=== PATIENT | male | born 2000 ===

== ENCOUNTER 2022-01-12 16:12 | Emergency (ER) | payer SELFPAY ==
[2022-01-12] MEDS ORDERED: Lidocaine 1% PF 5 ML VIAL ONE ×2 (17:20→18:32)
[2022-01-12] MEDS ORDERED: Amoxicillin/Potassium Clav 500 MG TAB ONE (19:24)
[2022-01-12] MEDS ORDERED: Ibuprofen 600 MG TAB ONE (19:24)
== END 2022-01-12 19:30 | disposition home or self-care (01) ==
LOC: MADERS 16:12
DX: S61.211A Laceration without foreign body of left index finger without damage to nail, initial encounter (principal); S67.191A Crushing injury of left index finger, initial encounter; F17.290 Nicotine dependence, other tobacco product, uncomplicated; W22.8XXA Striking against or struck by other objects, initial encounter
CPT/HCPCS: 12001